=== PATIENT | female | born 1970 | race Caucasian/White ===

== ENCOUNTER 2024-08-22 08:45 | Day surgery (SDC) | payer OTHER ==
[2024-08-17 08:53] VITALS: BMI 32.3
[2024-08-22] MEDS ORDERED: PROPOFOL 40 ML ONE (09:47)
[2024-08-22 10:19] VITALS: PULSE 72; RESP 16; TEMP 98
[2024-08-22 10:37] VITALS: BP 121/69
== END 2024-08-22 11:35 | disposition home or self-care (01) ==
LOC: FASU-ENDO 08:45
PROVIDERS: ATTEND Internal Medicine Gastroenterology
PROC: 0DJD8ZZ Inspection of Lower Intestinal Tract, Via Natural or Artificial Opening Endoscopic (ICD-10-PCS; principal; 2024-08-22 09:59)
DX: Z12.11 Encounter for screening for malignant neoplasm of colon (principal)
CPT/HCPCS: 81025